=== PATIENT | female | born 1930 | race Caucasian/White ===

== ENCOUNTER 2016-12-22 23:46 | Inpatient (IN) | payer MEDICARE, OTHER ==
--- NOTE | ~2016-12-22 | DS ---
Discharge Summary [facility] [place] [address] [facility] [place]. [address] NAME: CHRISTY AKERS : 31 STATUS : DIS IN PAT#: [id number] AGE: 86 ADM/REG DATE : 12/23/16 MR#: [id number] REPORT SERV DATE: 12/31/16 DICTATED BY: ULISSES WELLS DATE: 12/30/16 REPORT STATUS : Draft TRANSCRIBED BY: MODL DATE: 12/30/16 ADMISSION DATE: 12/23/2016 DISCHARGE DATE: 12/30/2016 DISPOSITION: Discharged in stable condition to rehab at [facility]. DIAGNOSES ON DISCHARGE: 1. Healthcare-associated pneumonia or HCAP, resolved. 2. Sepsis, resolved. 3. Persistent leukocytosis that is resolving. 4. Thrombocytosis that is resolving. 5. Iron deficiency anemia that is stable. 6. Monoclonal gammopathy of undetermined significance, which is stable. 7. Diabetes mellitus, which is stable. 8. Acute kidney injury, resolved. 9. Hypertension, controlled. 10.Physical deconditioning. BRIEF HOSPITAL COURSE: Please refer to intermittent discharge summary dictated by Dr. Valencia on 12/29/2016. I saw this patient and had a lhum-im-gopf encounter on 12/30/2016 and on this day, the patient is extremely stable for discharge. She feels well, and she is actually ambulating the hallways with a little assistance from her son. The patient is able to eat food and keep it down. She has no reports of any diarrhea. She had a bowel movement, which was normal. Hence, the patient is being discharged to inpatient rehab at [facility] as the patient is physically deconditioned and very frail. She has completed her treatment for hospital-acquired pneumonia for seven days and hence should not be on any more antibiotics. In fact, we are taking her off the doxycycline and the Augmentin that she was on, when she came in. There is no reason for the patient to stay on any more antibiotics for more than seven days as she is afebrile, feels much better. Lungs are clear. Leukocytosis is resolving and keeping her on antibiotics longer would may put her at risk for C. diff colitis. Hence, the patient is being sent to [facility] on her regular medicines, which will include her blood pressure medicine which is an PACO inhibitor and lisinopril, medicine for diabetes which is metformin, statin, aspirin 81 mg once a day, and her vitamin D. Otherwise, the patient does not need any other medications other than her vitamin and mineral tablets. On the day of discharge, I do have the following labs on this patient. CBC shows a WBC count of 16.1, hemoglobin is 9.3, hematocrit is 28.8, and platelet count is 621. Her renal function tests show sodium 141, potassium 4.5, BUN 20, creatinine 0.7. The consultations that she obtained while in the hospital was ID consult. Hence, the patient is being sent to the rehab on the following medications. Also in addition to that, her procalcitonin came back normal at 0.2 on 12/29/2016. So, she will be sent home on the following medications and these will include the following: Aspirin 81 mg once a day, lisinopril 2.5 mg once a day, metformin 500 mg p.o. b.i.d., Lipitor 20 mg once a day, Cholecalciferol 10,000 units p.o. every seven days primary tablets, nitroglycerin one Discharge Summary [address] [address] NAME: CHRISTY AKERS : 31 STATUS : DIS IN PAT#: [id number] AGE: 86 ADM/REG DATE : 12/23/16 MR#: [id number] REPORT SERV DATE: 12/31/16 DICTATED BY: ULISSES WELLS DATE: 12/30/16 REPORT STATUS : Draft TRANSCRIBED BY: MODAngie DATE: 12/30/16 patch p.r.n., and Tylenol p.m. tablet one p.o. q.p.m. p.r.n., and artificial tears. The most recent chest x-ray that I have on this patient is from 12/29/2016, which was a portable chest x-ray, and this shows minimal right basilar infiltrate and pleural fluid, not significantly changed. Otherwise no acute cardiopulmonary abnormality. I am expecting that this slight right basilar infiltrate should also resolve radiologically with time as the patient already looks clinically much better. Hence, she is being discharged to rehab at [facility] in stable condition. I have spent about 40 minute in coordinating discharge care of this patient including face- to-face encounter and summarizing this discharge. GIANFRANCO/PHILLIP Ulisses Wells M.D. / [id number] CC: Monster Clinton II, M.D.
--- NOTE | ~2016-12-22 | HP ---
History And Physical [place] [id number] [facility] [place]. [address] NAME: CHRISTY AKERS : 31 STATUS : ADM IN [facility]#: [id number] AGE: 86 ADM/REG DATE : 12/23/16 MR#: [id number] REPORT SERV DATE: 12/23/16 DICTATED BY: LAKEISHA MACIAS DATE: 12/23/16 REPORT STATUS : Draft TRANSCRIBED BY: MODL DATE: 12/23/16 DATE OF ADMISSION: 12/23/2016 CHIEF COMPLAINT: An 86-year-old female presenting with shortness of breath. HISTORY OF PRESENT ILLNESS: The patient's history was obtained through an interview with the patient and son, coupled with review of [facility] medical records. The patient began to feel ill about eoy-lop-e-half or three weeks ago. She had mild sinus drainage and cough and then she went to visit her son in [place], [place]. While visiting [place], the patient was apparently becoming more and more ill and when she returned home about a week ago, she went to see a physician and was told that she had a urinary tract infection and was placed on doxycycline on 12/17/2016. Despite this antibiotic, the patient has had no relief and only progression of her symptoms. She describes a cough productive of a light green sputum. She has had shortness of breath characterized by dyspnea on exertion. Her main complaint has just been increasing weakness and fatigue and on the night leading up to admission, she felt so weak that she could not get out of a chair. No lightheadedness. No confusion. She does describe chest discomfort at the base of both lungs, a sharp quality discomfort with coughing of 4/10 severity. She has had subjective fevers and chills. Some mild diarrhea that is actually improved on the day of admission. No nausea or vomiting, and a very poor appetite. REVIEW OF SYSTEMS: Otherwise, a 14-point review of systems was obtained and was negative. PAST MEDICAL HISTORY: 1. Diabetes. 2. Hypertension. 3. Elevated cholesterol. 4. Monoclonal gammopathy of undetermined significance with a 7.8% band in 2012. 5. Recurrent urinary tract infection seen by Dr. Thomas. 6. Granulomatous lung disease. 7. Essential tremor. 8. Peptic ulcer disease. 9. Positive MATTY of undetermined significance. 10.Negative catheterization of the heart in 2003. PAST SURGICAL HISTORY: 1. Hysterectomy. 2. Cholecystectomy. 3. Sinus surgery. History And Physical [address] [address] NAME: CHRISTY AKERS : 31 STATUS : ADM IN [facility]#: [id number] AGE: 86 ADM/REG DATE : 12/23/16 MR#: [id number] REPORT SERV DATE: 12/23/16 DICTATED BY: LAKEISHA MACIAS DATE: 12/23/16 REPORT STATUS : Draft TRANSCRIBED BY: PHILLIP DATE: 12/23/16 4. Left hip surgery. ALLERGIES: DARCALMA, ISOSORBIDE, ERYTHROMYCIN, AND BEXTRA. SOCIAL HISTORY: Never been a smoker. Does not drink alcohol. She lives in the independent living portion [facility]. She is a retired secondary social studies teacher. She has been twice and she now lives alone. She has five children, 15 grandchildren, and 12 great grandchildren. CODE STATUS: DNR. FAMILY HISTORY: Father at 57 years of age of a heart attack. Mother at 68 years of age of a heart attack. A strong family history of breast cancer and diabetes as well. CURRENT MEDICATIONS: Include 1. Augmentin 875 mg p.o. b.i.d. started on 12/22/2016. 2. Doxycycline 100 mg p.o. b.i.d., started on 12/17/2016. 3. Eye drops. 4. Aspirin 81 mg p.o. daily. 5. Lipitor 20 mg p.o. daily. 6. Vitamin D. 7. Tylenol PM. 8. Lisinopril 2.5 mg p.o. daily. 9. Metformin 500 mg p.o. b.i.d. 10.Nitroglycerin patch. 11.Cranberry extract. PHYSICAL EXAMINATION: VITAL SIGNS: Temperature 99.2, pulse 109, blood pressure 132/59, respiratory rate 35, and O2 saturation 93% on room air. GENERAL: An ill-appearing female, not in any particular distress however. HEENT: Pupils equal, round, and reactive to light. No conjunctival pallor. No scleral icterus. Nares are patent. Oropharynx is clear of obstruction. Dry mucous membranes. NECK: Trachea midline. No thyromegaly. LYMPH: No cervical lymphadenopathy. No supraclavicular lymphadenopathy. RESPIRATORY: The patient has scattered rhonchi on examination. She has diminished breath sounds at the right base of the lung with what I examined as focal egophony in the right lower lung. No wheezes. No rales. The patient has a labored respiratory effort. CARDIOVASCULAR: Tachycardic. Regular rhythm. No murmurs, rubs, or gallops. No extremity edema is appreciated. ABDOMEN: Soft, nontender, nondistended. Normal bowel sounds auscultated throughout. No hepatosplenomegaly. DERMATOLOGICAL: Warm and dry extremities. No pallor. No cyanosis. PSYCHIATRIC: Normal affect. Good mood. Alert and oriented x3. LABORATORY DATA: White blood cell count 31.7, hemoglobin 10, hematocrit 31, and platelets 364. Sodium 129, potassium 3.9, chloride 94, bicarb 27, BUN 18, creatinine 1.3 from baseline History And Physical [address] [address] NAME: CHRISTY AKERS : 31 STATUS : ADM IN [facility]#: [id number] AGE: 86 ADM/REG DATE : 12/23/16 MR#: [id number] REPORT SERV DATE: 12/23/16 DICTATED BY: LAKEISHA MACIAS DATE: 12/23/16 REPORT STATUS : Draft TRANSCRIBED BY: PHILLIP DATE: 12/23/16 creatinine of 0.9. Glucose 343. Brain natriuretic peptide 60. Troponin negative. Albumin 2.7. Lactic acid 1.5. Alkaline phosphatase 203. Total bilirubin 1.3. ABG demonstrates pH 7.50, PaCO2 of 29, a PaO2 of 68, and a bicarb of 22. STUDIES: 1. Chest x-ray by my own evaluation shows a right lower lung pneumonia. 2. EKG by my own evaluation shows sinus tachycardia, left axis deviation. ASSESSMENT AND PLAN: 1. Facility-acquired pneumonia. Check blood cultures. Place on IV antibiotics. 2. Sepsis. White blood cell count of 31.7. 3. Tachycardia, tachypnea. Check blood cultures. Place on IV antibiotics. 4. Acute kidney injury. Place on IV fluids and monitor. 5. Uncontrolled diabetes. Add low dose of Levemir. Check hemoglobin A1c. Place on sliding scale insulin and monitor closely. 6. Monoclonal gammopathy of undetermined significance. Recheck a serum protein electrophoresis to make certain that this is not related to the patient's presentation and illness. KPL/MODL Lakeisha Macias M.D. / [id number] CC: MD Antolin Espinoza II, M.D.
--- NOTE | ~2016-12-22 | CN ---
Consultation Report [facility] [address] [place]. [address] NAME: CHRISTY AKERS : 31 STATUS : ADM IN PAT#: [id number] AGE: 86 ADM/REG DATE : 12/23/16 MR#: [id number] REPORT SERV DATE: 12/29/16 DICTATED BY: ADRIANA COURTNEY DATE: 12/29/16 REPORT STATUS : Draft TRANSCRIBED BY: MODL DATE: 12/29/16 INFECTIOUS DISEASE CONSULT DATE OF CONSULTATION: REASON FOR REFERRAL: Evaluation and treatment of pneumonia. HISTORY OF PRESENT ILLNESS: The patient is an 86-year-old female. She has a history of hypertension, diabetes mellitus, hyperlipidemia, monoclonal gammopathy of unknown significance, peptic ulcer disease. She came in on 12/23/2016 complaining of about 2-1/2 weeks of cough, shortness of breath, increasing weakness, and then several days of fever and chill-like sensations. She was initially around 99 and later had a temperature of 100 shortly after admission, but has been afebrile over the last four days. She had previously been diagnosed with urinary tract infection and taken doxycycline for several days prior to coming in which had not helped with a respiratory symptoms, so it was felt to be unlikely to be an atypical. She resides in [facility], so was treated with vancomycin cefepime for a possible healthcare-associated pneumonia. Chest x-ray showed a right lower lobe infiltrate. Her white count was 31.7 with a baseline white count normally being in the 110s. She had 87 segs, 3% bands on the initial diff although at 15% on the later diff. She began to improve on the antibiotics, cough and shortness of breath have improved markedly and have almost resolved completely. Her temperatures remain normal. White count is getting close to baseline and she still feels weak. She has right lower quadrant abdominal pain which she says predates this admission and says that is still present. A CT scan has been done of the abdomen and pelvis that really remarks on the pathology in that area. Urinalysis that was repeated and was found to be clear. She did recently go to [place] on 12/09/2016 to 12/16/2016, but was already sick before she went there and had very little exposure to the outdoors there, no other unusual environmental exposures. PAST MEDICAL HISTORY: Otherwise unremarkable. MEDICATIONS: As previously described. ALLERGIES: SHE IS ALLERGIC TO ERYTHROMYCIN WHICH CAUSES GASTROINTESTINAL SYMPTOMS. SHE IS , NONSMOKER. NO HISTORY OF ALCOHOL OR SUBSTANCE ABUSE. FAMILY HISTORY: Noncontributory. PHYSICAL EXAMINATION: GENERAL: Chronically ill, frail elderly female, in no acute distress. Alert and oriented x3. VITAL SIGNS: Her temperature here has been normal for the last four days, currently at 98.7 with a pulse of 82, respirations 16, blood pressure 139/65, weight 48 kg. HEENT: Sclerae clear. No oral lesions. NECK: Supple. Consultation Report [place] [id number] [facility] [place]. [address] NAME: CHRISTY AKERS : 31 STATUS : ADM IN [facility]#: [id number] AGE: 86 ADM/REG DATE : 12/23/16 MR#: [id number] REPORT SERV DATE: 12/29/16 DICTATED BY: ADRIANA COURTNEY DATE: 12/29/16 REPORT STATUS : Draft TRANSCRIBED BY: PHILLIP DATE: 12/29/16 LUNGS: There are crackles heard in the right base, otherwise clear. HEART: Regular rate and rhythm. ABDOMEN: Soft, tender in the right lower quadrant without guarding or rebound. No masses were palpated. EXTREMITIES: Without clubbing, cyanosis, or edema. No rashes noted. LABORATORIES: White blood cell count 22.6, hematocrit 32.2, platelets 750. BUN and creatinine are 18 and 0.72. IMPRESSION: Right lower lobe pneumonia that I feel was indeed bacterial and has responded well to these antibiotics. With the length of time that she was sick, it was likely she had a viral infection to begin with that got complicated by secondary bacterial pneumonia. RECOMMENDATIONS: 1. I feel antibiotics can be stopped tomorrow. 2. Possibly back to her facility tomorrow unless further workup needs to be done for the right lower white quadrant abdominal pain. We will re-evaluate her tomorrow. I appreciate very much your consulting on this patient. JOSIANE Adriana Courtney M.D. / [id number] CC: MD Antolin Espinoza II, M.D.
--- NOTE | ~2016-12-22 | IDS ---
Interim Discharge Summary [facility] [address] [place]. [address] NAME: CHRISTY AKERS : 32 STATUS : ADM IN [facility]#: [id number] AGE: 86 ADM/REG DATE : 12/23/16 MR#: [id number] REPORT SERV DATE: 12/30/16 DICTATED BY: AVELINO SAUER DATE: 12/29/16 REPORT STATUS : Draft TRANSCRIBED BY: MODL DATE: 12/29/16 ADMISSION DATE: 12/23/2016 DISCHARGE DATE: DATE OF DISCHARGE: Pending. ADMISSION DIAGNOSIS: Sepsis due to pneumonia. CURRENT DIAGNOSES: 1. Healthcare associated pneumonia. 2. Sepsis, resolved. 3. Persistent leukocytosis. 4. Thrombocytosis. 5. Iron-deficiency anemia. 6. Monoclonal gammopathy of undetermined significance. 7. Acute conjunctivitis. 8. Acute kidney injury, resolved. 9. Hypertension, controlled. 10.History of essential tremor. CURRENT CONDITION: Stable. HISTORY OF PRESENT ILLNESS: This is an 86-year-old female with medical history of MGUS who presented to the hospital with complaints of worsening shortness of breath and cough productive of light greenish sputum. In the ER, blood pressure was 132/59, respiratory rate of 35, temperature of 92.2, saturating 93% on room air. Physical exam was noted for scattered rhonchi with diminished breath sounds. Laboratory data was significant for white cell count of 31.7. Creatinine of 1.3, sodium of 129, glucose of 342. BNP was 60, troponin was negative. Lactic acid was 1.5. Chest x-ray showed right lower lung pneumonia. EKG showed just sinus tachycardia with left axis deviation. An assessment of healthcare associated pneumonia was made in the ER, and the patient was admitted to the hospitalist service. HOSPITAL COURSE: 1. Sepsis secondary to HCAP. Patient was started on broad-spectrum IV antibiotics with vanc and cefepime. Blood cultures were obtained. The patient was unable to produce adequate sputum. UA was negative. The patient's white blood cell trended down from 31,000 to 18,000 on antibiotics. However, in the last 24 hours, the patient's white blood cell trended back up from 18,000 to 20,000. Repeat procalcitonin was less than 0.5. Given the patient's worsening leukocytosis, I consulted Infectious Disease who agreed that the patient's pneumonia has been adequately treated. ID will re-evaluate the patient on the morning of 12/30/2016 and will decide to likely discontinue all antibiotics. 2. Persistent leukocytosis. I consulted Oncology to comment on the patient's recalcitrant leukocytosis despite IV antibiotics. At this time, there is low suspicion for malignancy per Oncology. Elevated leukocytosis of 20,000 is still likely reactive to Interim Discharge Summary [address] [address] NAME: CHRISTY AKERS : 31 STATUS : ADM IN PAT#: [id number] AGE: 86 ADM/REG DATE : 12/23/16 MR#: [id number] REPORT SERV DATE: 12/30/16 DICTATED BY: AVELINO SAUER DATE: 12/29/16 REPORT STATUS : Draft TRANSCRIBED BY: PHILLIP DATE: 12/29/16 Infectious Disease. The plan is to monitor and follow up with patient's repeat SPEP results in the a.m. 3. History of MGUS. The patient has a diagnosis of MGUS several years ago per Oncology. The patient's MGUS is currently stable and not contributing to the patient's persistent leukocytosis. 4. Thrombocytosis, likely reactive to infections and iron deficiency. The patient's platelet count has remained stable. We will continue to monitor. 5. Acute kidney injury, resolved. The patient was noted to have a creatinine of 1.3 on presentation, likely due to prerenal azotemia with gentle IV fluids. The patient's creatinine has now trended back to baseline of 0.9. 6. Diabetes mellitus type 2. The patient's blood sugar has been tightly controlled with Levemir. I am being very cautious with insulin with this patient because she had some episodes of hypoglycemia during the course of this admission. We will continue to monitor the patient's blood sugar closely. DISCHARGE PREPARATION: The patient may be discharged tomorrow if okay with Hematology/Oncology and Infectious Disease to continue followup as an outpatient. This above plan has been discussed with the patient and the family member. Of note, the patient's son was also a medical doctor. He is a watch assembler from [place]. He is currently around to help in decision making. CURRENT CONDITION: Stable. IOO/MODL Avelino Sauer MD / [id number]
[~2016-12-22 23:46] MED LIST: ACTOS45 PO; ASAB PO; CIP2 PO; CRANBERRY1 TAB OR; CRANBERRY500 MG OR; DARCALMA PO; DYAZIDE1 CAP PO; ESTRACE VAGIN42.5 GM V; FISH-EPA1000 MG PO; FORTAMET500 MG PO; FOSAMAX70 MG PO; GLUCPH PO; IRON325 MG PO; ISOSORB DIN30 MG PO; LIPITOR20 PO; MACRO50B PO; MAX25 PO; METHYLCOBALAMIN PO; MULTIPLE VIT PO; PRAVACHOL40 MG PO; PRIN2.5 PO; VITAMIN D1000 UNI1 PO; VITD PO; ZOCOR40 PO; [UNRECOGNIZED DRUG - OTHER] PO; [UNRECOGNIZED DRUG - OTHER] PO
[2016-12-23 00:38] LABS: BASOPHILS 0.1 %; BASOPHILS ABSOLUTE 0.04 10/3/uL (0.0-0.16); EOSINOPHILS 0 %; ER CBC TAT 0 Hrs 05 Mins; HEMATOCRIT 31.5 % (36.0-48.0); HEMOGLOBIN 10.5 g/dL (12.0-16.0); IMMATURE GRANULOCYTES 0.9 %; LYMPHOCYTES 3.6 %; LYMPHOCYTES ABSOLUTE 1.13 10/3/uL (0.67-4.30); MEAN CORPUS HGB CONC 33.3 g/dL (32.0-36.0); MEAN CORPUSCULAR HEMOGLOB 25.2 pg (26.0-34.0); MEAN CORPUSCULAR VOLUME 75.5 fL (80-100); MEAN PLATELET VOLUME 10.8 fL (9.2-13.0); MONOCYTES 8.3 %; MONOCYTES ABSOLUTE 2.64 10/3/uL (0.21-1.20); NEUTROPHILS 87.1 %; NEUTROPHILS ABSOLUTE 27.62 10/3/uL (2.02-8.40); PLATELET COUNT 364 10/3/uL (150-400); RBC DISTRIBUTION WIDTH 17.3 % (12.0-16.0); RED CELL COUNT 4.17 10/6/uL (4.0-5.6); WHITE BLOOD CELLS 31.7 10/3/uL (4.5-10.5)
[2016-12-23 00:39] LABS: MANUAL DIFF NO %
[2016-12-23 00:39] LABS: BE (BASE EXCESS) -0.4 MEQ/L (0 +/- 2.5); HCO3 (ACTUAL BICARBONATE) 21.9 MEQ/L (23-27); HEMOBLOGIN CONTENT 10.4 G/DL (12-16); INSTRUMENT SERIAL # 8087; METHEMOGLOBIN 0.1 % (0-3); O2 CONTENT 13.7 VOL% (18-24); PCO2 (CO2 TENSION) 29 MMHG (35-45); PO2 (O2 TENSION) 68 MMHG (79-93); SAMPLE Arterial
[2016-12-23 00:57] LABS: A/G RATIO 0.6 (0.7-1.9); ALBUMIN 2.7 G/DL (3.5-5.0); ALKALINE PHOSPHATASE 203 U/L (45-117); BUN (BLOOD UREA NITROGEN) 18 MG/DL (6-23); CALCIUM, SERUM 8.8 MG/DL (8.5-10.4); CHLORIDE, SERUM 94 MMOL/L (96-112); CO2 (CARBON DIOXIDE) 27 MMOL/L (24-34); CREATININE 1.34 MG/DL (0.55-1.02); GFR AFRICAN AMERICAN 42 ML/MIN (>=60); GFR NON AFRICAN AMERICAN 36 ML/MIN (>=60); GLOBULIN 4.8 G/DL (2.5-4.1); GLUCOSE, SERUM 343 MG/DL (60-99); POTASSIUM, SERUM 3.9 MMOL/L (3.5-5.3); SGOT(AST) 34 U/L (5-40); SGPT(ALT) 54 U/L (5-65); SODIUM, SERUM 129 MMOL/L (135-148); TOTAL BILIRUBIN 1.3 MG/DL (0-1.2); TOTAL PROTEIN 7.5 G/DL (6.0-8.5)
[2016-12-23 00:58] LABS: LACTATE 1.5 MMOL/L (0.3-2.4)
[2016-12-23 01:06] LABS: BAND NEUTROPHILS 3 %; ER DIFF TAT 0 Hrs 33 Mins; LYMPHOCYTES 4 %; LYMPHOCYTES ABSOLUTE (CALC) 1.27 10/3/uL (0.67-4.30); MONOCYTES 6 %; NEUTROPHILS ABSOLUTE (CALC) 28.53 10/3/uL (2.02-8.40); SEGMENTED NEUTROPHIL (0) 87 %; TOTAL NUCLEATED CELLS 100
[2016-12-23 01:08] LABS: ANISOCYTOSIS 1+ (5-10/OIF) (0-5/OIF); PLATELET ESTIMATE ADQ (ADEQUATE); RBC MORPHOLOGY ABN (NORMAL)
[2016-12-23] MEDS ORDERED: LIPITOR20 PO (01:28)
[2016-12-23] MEDS ORDERED: ASAB PO (01:28)
[2016-12-23] MEDS ORDERED: PRIN2.5 PO (01:28)
[2016-12-23] MEDS ORDERED: GLUCPH PO (01:28)
[2016-12-23] MEDS ORDERED: CRANBERRY 25000 MG PO (01:29)
[2016-12-23] MEDS ORDERED: MAXIMUM D3 PO (01:29)
[2016-12-23] MEDS ORDERED: NITROII10C TOP (01:31)
[2016-12-23] MEDS ORDERED: MONODOX100 MG PO (01:32)
[2016-12-23] MEDS ORDERED: AUG875 PO (01:33)
[2016-12-23] MEDS ORDERED: TYLENOL PM PO (01:34)
[2016-12-23] MEDS ORDERED: TEARS PURE OPH (01:34)
[2016-12-23 01:50] LABS: PROCALCITONIN 2.69 ng/mL (<0.5)
[2016-12-23 03:25] LABS: ASCORBIC ACID (UR NOT ORDER) NEG (NEG); BILIRUBIN, URINE NEGATIVE (NEG); ER URINALYSIS TAT 0 Hrs 07 Mins; KETONE, URINE TRACE MG/DL (NEG); LEUKOCYTE ESTERASE(NOT OR LARGE (NEG); NITRITE (URINE) NEG (NEG); WBC (NOT ORDERED) (RFLEX) 58 (0-5)
[2016-12-23 09:38] LABS: HEMATOCRIT 28.4 % (36.0-48.0); HEMOGLOBIN 9.4 g/dL (12.0-16.0); MEAN CORPUS HGB CONC 33.1 g/dL (32.0-36.0); MEAN CORPUSCULAR HEMOGLOB 25.2 pg (26.0-34.0); MEAN CORPUSCULAR VOLUME 76.1 fL (80-100); MEAN PLATELET VOLUME 10.8 fL (9.2-13.0); PLATELET COUNT 347 10/3/uL (150-400); RBC DISTRIBUTION WIDTH 17.5 % (12.0-16.0); RED CELL COUNT 3.73 10/6/uL (4.0-5.6)
[2016-12-23 09:39] LABS: MANUAL DIFF YES %; WHITE BLOOD CELLS 29.5 10/3/uL (4.5-10.5)
[2016-12-23 09:43] LABS: INTERNATIONAL NORMAL RATI 1.4 UNITS (-); PARTIAL THROMBO TIME 38.8 SEC (22.5-37.2)
[2016-12-23 09:45] LABS: PROTIME (NOT ORD) 17.3 SEC (12.0-14.5)
[2016-12-23 10:01] LABS: T PROTEIN (ELECT)(NOT OR 5.5 G/DL (6.0-8.5)
[2016-12-23 10:07] LABS: A/G RATIO 0.5 (0.7-1.9); ALBUMIN 2.2 G/DL (3.5-5.0); ANISOCYTOSIS 1+ (5-10/OIF) (0-5/OIF); BAND NEUTROPHILS 6 %; BUN (BLOOD UREA NITROGEN) 15 MG/DL (6-23); CALCIUM, SERUM 8.6 MG/DL (8.5-10.4); CHLORIDE, SERUM 103 MMOL/L (96-112); CO2 (CARBON DIOXIDE) 26 MMOL/L (24-34); CREATININE 1.05 MG/DL (0.55-1.02); GFR AFRICAN AMERICAN 56 ML/MIN (>=60); GFR NON AFRICAN AMERICAN 48 ML/MIN (>=60); GLOBULIN 4.1 G/DL (2.5-4.1); HYPOCHROMIA 1+ (3-10/OIF) (0-2/OIF); LYMPHOCYTES 8 %; LYMPHOCYTES ABSOLUTE (CALC) 2.36 10/3/uL (0.67-4.30); MONOCYTES 7 %; MONOCYTES ABSOLUTE (CALC) 2.07 10/3/uL (0.21-1.20); NEUTROPHILS ABSOLUTE (CALC) 25.08 10/3/uL (2.02-8.40); PLATELET ESTIMATE ADQ (ADEQUATE); POTASSIUM, SERUM 3.8 MMOL/L (3.5-5.3); SEGMENTED NEUTROPHIL (0) 79 %; SGPT(ALT) 41 U/L (5-65); SODIUM, SERUM 135 MMOL/L (135-148); TOTAL NUCLEATED CELLS 100; TOTAL PROTEIN 6.3 G/DL (6.0-8.5)
[2016-12-23 10:08] LABS: ALKALINE PHOSPHATASE 165 U/L (45-117); GLUCOSE, SERUM 274 MG/DL (60-99); MICROCYTES 1+ (5-10/OIF) (0-5/OIF); TOTAL BILIRUBIN 0.7 MG/DL (0-1.2); ULTRASENSITIVE TSH 0.656 MCIU/ML (0.358-3.740)
[2016-12-23 10:09] LABS: SGOT(AST) 24 U/L (5-40)
[2016-12-23 10:22] LABS: SED RATE 78 MM/HR (0-20)
[2016-12-23 18:47] LABS: HEMATOCRIT 28.7 % (36.0-48.0); HEMOGLOBIN 9.3 g/dL (12.0-16.0); MEAN CORPUS HGB CONC 32.4 g/dL (32.0-36.0); MEAN CORPUSCULAR VOLUME 77.2 fL (80-100); MEAN PLATELET VOLUME 10.9 fL (9.2-13.0); PLATELET COUNT 328 10/3/uL (150-400); RBC DISTRIBUTION WIDTH 17.7 % (12.0-16.0); RED CELL COUNT 3.72 10/6/uL (4.0-5.6)
[2016-12-23 18:48] LABS: MANUAL DIFF YES %; WHITE BLOOD CELLS 27.9 10/3/uL (4.5-10.5)
[2016-12-23 19:26] LABS: ANISOCYTOSIS 1+ (5-10/OIF) (0-5/OIF); BAND NEUTROPHILS 11 %; IMMATURE GRANS ABSOLUTE (CALC) 0.28 10/3/uL (0.0-0.11); LYMPHOCYTES 4 %; LYMPHOCYTES ABSOLUTE (CALC) 1.12 10/3/uL (0.67-4.30); METAMYELOCYTES 1 %; MONOCYTES 14 %; MONOCYTES ABSOLUTE (CALC) 3.91 10/3/uL (0.21-1.20); PLATELET ESTIMATE ADQ (ADEQUATE); SEGMENTED NEUTROPHIL (0) 70 %; TOTAL NUCLEATED CELLS 100
[2016-12-23 20:24] LABS: ALBUMIN 2.3 G/DL (3.5-5.0); BUN (BLOOD UREA NITROGEN) 16 MG/DL (6-23); CHLORIDE, SERUM 108 MMOL/L (96-112); CO2 (CARBON DIOXIDE) 22 MMOL/L (24-34); CREATININE 0.86 MG/DL (0.55-1.02); GFR AFRICAN AMERICAN 71 ML/MIN (>=60); GFR NON AFRICAN AMERICAN 62 ML/MIN (>=60); GLUCOSE, SERUM 82 MG/DL (60-99); PHOSPHORUS, SERUM 1.4 MG/DL (2.5-4.5); POTASSIUM, SERUM 4.5 MMOL/L (3.5-5.3); SODIUM, SERUM 138 MMOL/L (135-148)
[2016-12-24 11:34] LABS: A/G 0.68 RATIO (0.9-2.10); ABNORMAL PEAK 1 0.64 G/DL; ABNORMAL PEAK 1 % 11.8 % (0); ALB RELATIVE % 40.6 % (60.0-89.0); ALBUMIN (ELECTRO) 2.23 GM/DL (3.2-5.5); ALPHA 1 (ELECTRO) 0.47 GM/DL (0.1-0.4); ALPHA 1 RELAT % (NOT ORD) 8.5 % (1.0-4.0); ALPHA 2 (ELECTRO) 0.89 GM/DL (0.5-1.10); ALPHA 2 RELAT % 16.2 % (4.5-26.0); BETA GLOBULIN (SPE) 0.92 GM/DL (0.60-1.30); BETA RELATIVE % 16.7 % (9.0-22.0); GAMMA GLOBULIN (SPE) 0.99 G/DL (0.70-1.60)
[2016-12-25 13:38] LABS: BUN (BLOOD UREA NITROGEN) 14 MG/DL (6-23); CALCIUM, SERUM 8.8 MG/DL (8.5-10.4); CHLORIDE, SERUM 104 MMOL/L (96-112); CO2 (CARBON DIOXIDE) 24 MMOL/L (24-34); CREATININE 0.71 MG/DL (0.55-1.02); GFR AFRICAN AMERICAN 90 ML/MIN (>=60); GFR NON AFRICAN AMERICAN 78 ML/MIN (>=60); GLUCOSE, SERUM 75 MG/DL (60-99); SODIUM, SERUM 135 MMOL/L (135-148)
[2016-12-25 13:39] LABS: POTASSIUM, SERUM 3.3 MMOL/L (3.5-5.3)
[2016-12-25 14:47] LABS: MEAN CORPUS HGB CONC 32.6 g/dL (32.0-36.0); MEAN CORPUSCULAR HEMOGLOB 24.8 pg (26.0-34.0); MEAN PLATELET VOLUME 10.5 fL (9.2-13.0); RBC DISTRIBUTION WIDTH 17.9 % (12.0-16.0); RED CELL COUNT 4.08 10/6/uL (4.0-5.6); WHITE BLOOD CELLS 21.6 10/3/uL (4.5-10.5)
[2016-12-25 14:48] LABS: MANUAL DIFF YES %; PLATELET COUNT 494 10/3/uL (150-400)
[2016-12-25 15:26] LABS: BAND NEUTROPHILS 1 %; EOSINOPHILS 2 %; EOSINOPHILS ABSOLUTE (CALC) 0.43 10/3/uL (0.0-0.53); LYMPHOCYTES 13 %; LYMPHOCYTES ABSOLUTE (CALC) 2.81 10/3/uL (0.67-4.30); NEUTROPHILS ABSOLUTE (CALC) 18.36 10/3/uL (2.02-8.40); SEGMENTED NEUTROPHIL (0) 84 %; TOTAL NUCLEATED CELLS 100
[2016-12-25 15:32] LABS: ANISOCYTOSIS 1+ (5-10/OIF) (0-5/OIF); POIKILOCYTOSIS 1+ (5-10/OIF) (0-5/OIF)
[2016-12-25 15:33] LABS: MICROCYTES 1+ (5-10/OIF) (0-5/OIF); OVALOCYTES 1+ (3-10/OIF) (0-2/OIF); PLATELET ESTIMATE SLT INC (ADEQUATE)
[2016-12-26 06:06] LABS: ALBUMIN 1.9 G/DL (3.5-5.0); BUN (BLOOD UREA NITROGEN) 12 MG/DL (6-23); CALCIUM, SERUM 8.6 MG/DL (8.5-10.4); CHLORIDE, SERUM 110 MMOL/L (96-112); CO2 (CARBON DIOXIDE) 25 MMOL/L (24-34); CREATININE 0.66 MG/DL (0.55-1.02); GFR AFRICAN AMERICAN 93 ML/MIN (>=60); GFR NON AFRICAN AMERICAN 81 ML/MIN (>=60); PHOSPHORUS, SERUM 3.2 MG/DL (2.5-4.5); POTASSIUM, SERUM 3.6 MMOL/L (3.5-5.3)
[2016-12-26 06:14] LABS: GLUCOSE, SERUM 46 MG/DL (60-99); SODIUM, SERUM 143 MMOL/L (135-148)
[2016-12-26 06:17] LABS: HEMATOCRIT 28.9 % (36.0-48.0); HEMOGLOBIN 9.6 g/dL (12.0-16.0); MEAN CORPUS HGB CONC 33.2 g/dL (32.0-36.0); MEAN CORPUSCULAR HEMOGLOB 24.9 pg (26.0-34.0); MEAN CORPUSCULAR VOLUME 75.1 fL (80-100); PLATELET COUNT 505 10/3/uL (150-400); RED CELL COUNT 3.85 10/6/uL (4.0-5.6); WHITE BLOOD CELLS 20.6 10/3/uL (4.5-10.5)
[2016-12-26 06:18] LABS: MANUAL DIFF YES %
[2016-12-26 07:07] LABS: BAND NEUTROPHILS 4 %; LYMPHOCYTES 4 %; LYMPHOCYTES ABSOLUTE (CALC) 0.82 10/3/uL (0.67-4.30); MONOCYTES 2 %; MONOCYTES ABSOLUTE (CALC) 0.41 10/3/uL (0.21-1.20); NEUTROPHILS ABSOLUTE (CALC) 19.36 10/3/uL (2.02-8.40); SEGMENTED NEUTROPHIL (0) 90 %; TOTAL NUCLEATED CELLS 100
[2016-12-26 07:08] LABS: PLATELET ESTIMATE SLT INC (ADEQUATE)
[2016-12-26 07:09] LABS: ANISOCYTOSIS 1+ (5-10/OIF) (0-5/OIF)
[2016-12-26 07:10] LABS: MICROCYTES 1+ (5-10/OIF) (0-5/OIF)
[2016-12-26 07:11] LABS: OVALOCYTES 1+ (3-10/OIF) (0-2/OIF); TOXIC GRANULATION 1+
[2016-12-27 06:37] LABS: CALCIUM, SERUM 8.7 MG/DL (8.5-10.4); CHLORIDE, SERUM 108 MMOL/L (96-112); CO2 (CARBON DIOXIDE) 25 MMOL/L (24-34); GFR AFRICAN AMERICAN 78 ML/MIN (>=60); GFR NON AFRICAN AMERICAN 67 ML/MIN (>=60); SODIUM, SERUM 139 MMOL/L (135-148)
[2016-12-27 06:39] LABS: BUN (BLOOD UREA NITROGEN) 16 MG/DL (6-23); GLUCOSE, SERUM 174 MG/DL (60-99); POTASSIUM, SERUM 4.4 MMOL/L (3.5-5.3)
[2016-12-27 06:54] LABS: HEMATOCRIT 29.6 % (36.0-48.0); HEMOGLOBIN 9.6 g/dL (12.0-16.0); MEAN CORPUS HGB CONC 32.4 g/dL (32.0-36.0); MEAN CORPUSCULAR HEMOGLOB 24.7 pg (26.0-34.0); MEAN CORPUSCULAR VOLUME 76.3 fL (80-100); MEAN PLATELET VOLUME 9.8 fL (9.2-13.0); PLATELET COUNT 584 10/3/uL (150-400); RBC DISTRIBUTION WIDTH 17.9 % (12.0-16.0); RED CELL COUNT 3.88 10/6/uL (4.0-5.6); WHITE BLOOD CELLS 20.4 10/3/uL (4.5-10.5)
[2016-12-27 07:01] LABS: MANUAL DIFF YES %
[2016-12-27 07:54] LABS: ANISOCYTOSIS 1+ (5-10/OIF) (0-5/OIF); BAND NEUTROPHILS 15 %; EOSINOPHILS 3 %; EOSINOPHILS ABSOLUTE (CALC) 0.61 10/3/uL (0.0-0.53); LYMPHOCYTES 13 %; LYMPHOCYTES ABSOLUTE (CALC) 2.65 10/3/uL (0.67-4.30); METAMYELOCYTES 1 %; MONOCYTES 5 %; MONOCYTES ABSOLUTE (CALC) 1.02 10/3/uL (0.21-1.20); NEUTROPHILS ABSOLUTE (CALC) 15.91 10/3/uL (2.02-8.40); PLATELET ESTIMATE SLT INC (ADEQUATE); SEGMENTED NEUTROPHIL (0) 63 %; TOTAL NUCLEATED CELLS 100
[2016-12-27 07:55] LABS: POLYCHROMASIA 1+ (2-5/OIF) (0-1/OIF); TARGET CELLS OCC (1-2/OIF) (0-1/OIF)
[2016-12-28 05:37] LABS: HEMATOCRIT 29.8 % (36.0-48.0); HEMOGLOBIN 9.8 g/dL (12.0-16.0); MEAN CORPUS HGB CONC 32.9 g/dL (32.0-36.0); MEAN CORPUSCULAR HEMOGLOB 25.1 pg (26.0-34.0); MEAN CORPUSCULAR VOLUME 76.2 fL (80-100); MEAN PLATELET VOLUME 9.6 fL (9.2-13.0); PLATELET COUNT 652 10/3/uL (150-400); RBC DISTRIBUTION WIDTH 18.1 % (12.0-16.0); RED CELL COUNT 3.91 10/6/uL (4.0-5.6); WHITE BLOOD CELLS 18.4 10/3/uL (4.5-10.5)
[2016-12-28 05:38] LABS: MANUAL DIFF YES %
[2016-12-28 05:55] LABS: BUN (BLOOD UREA NITROGEN) 18 MG/DL (6-23); CALCIUM, SERUM 8.7 MG/DL (8.5-10.4); CHLORIDE, SERUM 107 MMOL/L (96-112); CO2 (CARBON DIOXIDE) 29 MMOL/L (24-34); CREATININE 0.75 MG/DL (0.55-1.02); GFR AFRICAN AMERICAN 84 ML/MIN (>=60); GFR NON AFRICAN AMERICAN 73 ML/MIN (>=60); PHOSPHORUS, SERUM 3.5 MG/DL (2.5-4.5); POTASSIUM, SERUM 4.3 MMOL/L (3.5-5.3); SODIUM, SERUM 140 MMOL/L (135-148)
[2016-12-28 05:56] LABS: GLUCOSE, SERUM 139 MG/DL (60-99)
[2016-12-28 06:15] LABS: BAND NEUTROPHILS 11 %; IMMATURE GRANS ABSOLUTE (CALC) 0.55 10/3/uL (0.0-0.11); LYMPHOCYTES 10 %; LYMPHOCYTES ABSOLUTE (CALC) 1.84 10/3/uL (0.67-4.30); METAMYELOCYTES 3 %; MONOCYTES 5 %; MONOCYTES ABSOLUTE (CALC) 0.92 10/3/uL (0.21-1.20); NEUTROPHILS ABSOLUTE (CALC) 15.09 10/3/uL (2.02-8.40); SEGMENTED NEUTROPHIL (0) 71 %; TOTAL NUCLEATED CELLS 100
[2016-12-28 06:16] LABS: ANISOCYTOSIS 1+ (5-10/OIF) (0-5/OIF); HYPOCHROMIA 1+ (3-10/OIF) (0-2/OIF); MICROCYTES 1+ (5-10/OIF) (0-5/OIF); PLATELET ESTIMATE INC (ADEQUATE)
[2016-12-28 06:17] LABS: GIANT PLATELET FEW; OVALOCYTES 1+ (3-10/OIF) (0-2/OIF)
[2016-12-28 06:18] LABS: POLYCHROMASIA 1+ (2-5/OIF) (0-1/OIF); TARGET CELLS FEW (3-10/OIF) (0-1/OIF); TOXIC GRANULATION SLT
[2016-12-29 04:47] LABS: HEMOGLOBIN 9.3 g/dL (12.0-16.0); MEAN CORPUS HGB CONC 32.1 g/dL (32.0-36.0); MEAN CORPUSCULAR HEMOGLOB 24.8 pg (26.0-34.0); MEAN CORPUSCULAR VOLUME 77.3 fL (80-100); MEAN PLATELET VOLUME 9.4 fL (9.2-13.0); PLATELET COUNT 667 10/3/uL (150-400); RBC DISTRIBUTION WIDTH 17.8 % (12.0-16.0); RED CELL COUNT 3.75 10/6/uL (4.0-5.6); WHITE BLOOD CELLS 20.9 10/3/uL (4.5-10.5)
[2016-12-29 04:50] LABS: MANUAL DIFF YES %
[2016-12-29 05:00] LABS: BUN (BLOOD UREA NITROGEN) 18 MG/DL (6-23); CALCIUM, SERUM 8.6 MG/DL (8.5-10.4); CHLORIDE, SERUM 108 MMOL/L (96-112); CO2 (CARBON DIOXIDE) 25 MMOL/L (24-34); CREATININE 0.72 MG/DL (0.55-1.02); GFR AFRICAN AMERICAN 89 ML/MIN (>=60); GFR NON AFRICAN AMERICAN 76 ML/MIN (>=60); GLUCOSE, SERUM 151 MG/DL (60-99); POTASSIUM, SERUM 4.6 MMOL/L (3.5-5.3); SODIUM, SERUM 140 MMOL/L (135-148)
[2016-12-29 05:12] LABS: BAND NEUTROPHILS 3 %; IMMATURE GRANS ABSOLUTE (CALC) 0.21 10/3/uL (0.0-0.11); LYMPHOCYTES 14 %; LYMPHOCYTES ABSOLUTE (CALC) 2.93 10/3/uL (0.67-4.30); MONOCYTES 7 %; MONOCYTES ABSOLUTE (CALC) 1.46 10/3/uL (0.21-1.20); MYELOCYTES 1 %; SEGMENTED NEUTROPHIL (0) 75 %; TOTAL NUCLEATED CELLS 100
[2016-12-29 05:13] LABS: ANISOCYTOSIS 1+ (5-10/OIF) (0-5/OIF); PLATELET ESTIMATE INC (ADEQUATE); RBC MORPHOLOGY ABN (NORMAL)
[2016-12-29 06:36] LABS: PROCALCITONIN 0.21 ng/mL (<0.5)
[2016-12-29 08:49] LABS: HEMOGLOBIN 10.3 g/dL (12.0-16.0); MEAN CORPUSCULAR HEMOGLOB 25.2 pg (26.0-34.0); MEAN CORPUSCULAR VOLUME 78.7 fL (80-100); MEAN PLATELET VOLUME 9.8 fL (9.2-13.0); RBC DISTRIBUTION WIDTH 18.1 % (12.0-16.0); RED CELL COUNT 4.09 10/6/uL (4.0-5.6); WHITE BLOOD CELLS 22.6 10/3/uL (4.5-10.5)
[2016-12-29 08:51] LABS: HEMATOCRIT 32.2 % (36.0-48.0)
[2016-12-29 08:52] LABS: PLATELET COUNT 750 10/3/uL (150-400)
[2016-12-29 08:53] LABS: MANUAL DIFF YES %
[2016-12-29 09:01] LABS: SMEAR FOR ABNORMAL CELLS SEE PATHOLOGY REPORT
[2016-12-29 09:14] LABS: BAND NEUTROPHILS 4 %; EOSINOPHILS 5 %; EOSINOPHILS ABSOLUTE (CALC) 1.13 10/3/uL (0.0-0.53); IMMATURE GRANS ABSOLUTE (CALC) 0.45 10/3/uL (0.0-0.11); LYMPHOCYTES 18 %; LYMPHOCYTES ABSOLUTE (CALC) 4.07 10/3/uL (0.67-4.30); METAMYELOCYTES 1 %; MONOCYTES 2 %; MONOCYTES ABSOLUTE (CALC) 0.45 10/3/uL (0.21-1.20); MYELOCYTES 1 %; SEGMENTED NEUTROPHIL (0) 69 %; TOTAL NUCLEATED CELLS 100
[2016-12-29 09:15] LABS: ANISOCYTOSIS 1+ (5-10/OIF) (0-5/OIF); HYPOCHROMIA 1+ (3-10/OIF) (0-2/OIF)
[2016-12-29 10:38] LABS: % IRON SAT 13 % (20-50); FERRITIN 71 NG/ML (8-252); FOLATE 21.9 NG/ML (>5.2); IRON BINDING CAPACITY 247 MCG/DL (225-410); IRON, SERUM 33 MCG/DL (35-150)
[2016-12-29 15:44] LABS: ASCORBIC ACID (UR NOT ORDER) NEG (NEG); BILIRUBIN, URINE NEGATIVE (NEG); KETONE, URINE NEGATIVE (NEG); LEUKOCYTE ESTERASE(NOT OR NEG (NEG); WBC (NOT ORDERED) (RFLEX) 1 (0-5)
[2016-12-30 06:51] LABS: HEMOGLOBIN 9.3 g/dL (12.0-16.0); MEAN CORPUS HGB CONC 32.3 g/dL (32.0-36.0); MEAN CORPUSCULAR HEMOGLOB 25.1 pg (26.0-34.0); MEAN CORPUSCULAR VOLUME 77.8 fL (80-100); MEAN PLATELET VOLUME 9.7 fL (9.2-13.0); PLATELET COUNT 621 10/3/uL (150-400); RBC DISTRIBUTION WIDTH 18.2 % (12.0-16.0); WHITE BLOOD CELLS 16.1 10/3/uL (4.5-10.5)
[2016-12-30 07:02] LABS: ALBUMIN 2.2 G/DL (3.5-5.0); BUN (BLOOD UREA NITROGEN) 20 MG/DL (6-23); CALCIUM, SERUM 8.6 MG/DL (8.5-10.4); CHLORIDE, SERUM 108 MMOL/L (96-112); CO2 (CARBON DIOXIDE) 28 MMOL/L (24-34); CREATININE 0.74 MG/DL (0.55-1.02); GFR AFRICAN AMERICAN 86 ML/MIN (>=60); GFR NON AFRICAN AMERICAN 74 ML/MIN (>=60); GLUCOSE, SERUM 122 MG/DL (60-99); PHOSPHORUS, SERUM 3.9 MG/DL (2.5-4.5); POTASSIUM, SERUM 4.5 MMOL/L (3.5-5.3); SODIUM, SERUM 141 MMOL/L (135-148)
[2016-12-30 07:04] LABS: HEMATOCRIT 28.8 % (36.0-48.0); MANUAL DIFF YES %
[2016-12-30 08:12] LABS: ANISOCYTOSIS 1+ (5-10/OIF) (0-5/OIF); BAND NEUTROPHILS 11 %; BASOPHILS 1 %; BASOPHILS ABSOLUTE (CALC) 0.16 10/3/uL (0.0-0.16); EOSINOPHILS 3 %; EOSINOPHILS ABSOLUTE (CALC) 0.48 10/3/uL (0.0-0.53); IMMATURE GRANS ABSOLUTE (CALC) 0.81 10/3/uL (0.0-0.11); LYMPHOCYTES 10 %; LYMPHOCYTES ABSOLUTE (CALC) 1.61 10/3/uL (0.67-4.30); METAMYELOCYTES 3 %; MICROCYTES 1+ (5-10/OIF) (0-5/OIF); MONOCYTES 11 %; MONOCYTES ABSOLUTE (CALC) 1.77 10/3/uL (0.21-1.20); MYELOCYTES 2 %; NEUTROPHILS ABSOLUTE (CALC) 11.27 10/3/uL (2.02-8.40); PLATELET ESTIMATE INC (ADEQUATE); SEGMENTED NEUTROPHIL (0) 59 %; TOTAL NUCLEATED CELLS 100
== END 2016-12-30 15:43 | DRG 871 ==
LOC: ER 23:46 → 6NO 12-23 01:51
PROVIDERS: Hospitalist; Nurse Practitioner Acute Care
DX: A41.9 Sepsis, unspecified organism (principal); J15.9 Unspecified bacterial pneumonia; N17.9 Acute kidney failure, unspecified; E11.649 Type 2 diabetes mellitus with hypoglycemia without coma; E87.1 Hypo-osmolality and hyponatremia; Y95 Nosocomial condition; E11.65 Type 2 diabetes mellitus with hyperglycemia; D47.2 Monoclonal gammopathy; D50.9 Iron deficiency anemia, unspecified; E78.5 Hyperlipidemia, unspecified; R10.31 Right lower quadrant pain; G25.0 Essential tremor; E78.00 Pure hypercholesterolemia, unspecified; K27.9 Peptic ulcer, site unspecified, unspecified as acute or chronic, without hemorrhage or perforation; H10.32 Unspecified acute conjunctivitis, left eye; Z79.82 Long term (current) use of aspirin; Z79.84 Long term (current) use of oral hypoglycemic drugs; Z90.49 Acquired absence of other specified parts of digestive tract; Z90.710 Acquired absence of both cervix and uterus; Z80.3 Family history of malignant neoplasm of breast; Z83.3 Family history of diabetes mellitus; R05 Cough
CPT/HCPCS: 36600; 71010; 71020; 74176; 80048; 80053; 80069; 80202; 81001; 82272; 82565; 82607; 82728; 82746; 82805; 82947; 82962; 83540; 83550; 83605; 83615; 83735; 83880; 84100; 84145; 84155; 84165; 84443; 84484; 85025; 85610; 85652; 85730; 87040; 87070; 87086; 87205; 93005; 94640; 96374; 97116-GP; 97161-GP; 99285; A9270-GY; G8978-CK-GP; G8979-CJ-GP; G8980-CJ-GP; J0456; J0692; J3370